=== PATIENT | female | born 1970 | race African-American/Black ===

== ENCOUNTER 2017-07-06 11:54 | Emergency (ER) | payer SELFPAY ==
[~2017-07-06] VITALS: Ht 165.1 cm; Wt 96.6 kg
[2017-07-06] MEDS ORDERED: IV NORMAL SALINE 1000ML BAG 1,000 ML IV SCH (12:21)
[2017-07-06] MEDS ORDERED: fentaNYL PF VIAL 100 MCG/2 ML VIAL IV PRN (12:30)
[2017-07-06] MEDS ORDERED: 0.9 % SODIUM CHLORIDE 10 ML DISP.SYRIN. IV PRN (12:30)
--- NOTE | 2017-07-06 12:31 | PHYS DOC ---
Past Medical History Past Medical History: Hypertension, Hypothyroid, Other Additional Past Medical Histor: PE Past Surgical History: Cervical Fusion, , Hysterectomy, Tubal ligation , Other Additional Past Surgical Histo: left rotator cuff repair x2, right rotator cuff repair Alcohol Use: Occasionally Drug Use: None Adult General Chief Complaint Chief Complaint: TOE PROBLEM HPI HPI This is a pleasant 46-year-old female with history of hypertension, hypothyroidism and prior near syncope who presents with a syncopal episode and a toe injury. Patient describes a history of recurrent of near-syncope and dizziness that occurred after she sustained a head injury while working several years ago. Since that time she has intermittent bouts of dizziness with chest pain that caused her to fall. This morning's event began as she's got up from a standing position walking to the bedroom felt that she was going to pass out with tunnel vision, some dizziness and try to stop herself from falling when she stubbed her fourth toe on her right foot into a dresser. She did not actually lose consciousness. She does describe some mild chest discomfort with the symptoms. Although this is not a new symptom it is persistent and has been worked up in the past but not completely and she has not seen a marker shipments. Patient denies any chest pain at this time only mild dizziness. It is not worsened by head movement but is change in posture. She denies any abdominal pain, focal neurologic deficits like weakness, dysarthria, problems finding words, aphasia, numbness or tingling or other symptoms. Patient denies any trauma, travel or other trauma to her head. Patient's pain in her toe is about a 410 without direct pressure 8-10 with walking. Patient denies any prior injury to this toe in the past. Review of Systems Review of Systems Constitutional: Denies fever or chills [] Eyes: Denies change in visual acuity, redness, or eye pain [] HENT: Denies nasal congestion or sore throat [] Respiratory: Denies cough or shortness of breath [] Cardiovascular: No additional information not addressed in HPI [] GI: Denies abdominal pain, nausea, vomiting, bloody stools or diarrhea [] : Denies dysuria or hematuria [] Musculoskeletal: Patient has had some right foot pain over the fourth digit after the injury. Integument: Denies rash or skin lesions [] Neurologic: She has chronic daily headaches but no focal weakness or sensory changes just dizziness upon standing. Endocrine: Denies polyuria or polydipsia [] Current Medications Current Medications Current Medications Medications (Trade) Dose Ordered Sig/[facility] Start Time Stop Time Status Last Admin Dose Admin Fentanyl Citrate (Fentanyl 2ml Vial) 25 mcg PRN Q15MIN PRN 07/06/17 12:30 07/07/17 12:29 07/06/17 12:57 25 MCG Sodium Chloride (Normal Saline Flush) 10 ml QSHIFT PRN 07/06/17 12:30 07/06/17 12:57 10 ML Allergies Allergies Allergies Coded Allergies Type Severity Reaction Last Updated Verified No Known Drug Allergies 08/28/15 No Physical Exam Physical Exam Vital signs recorded on the chart there is no obvious abnormalities. He is not hypertensive, tachycardic, tachypneic or hypoxic Constitutional: Well developed, well nourished, no acute distress, non-toxic appearance. [] HENT: Normocephalic, atraumatic, bilateral external ears normal, oropharynx moist, no oral exudates, nose normal. [] Eyes: PERRLA, EOMI, conjunctiva normal, no discharge. Is no nystagmus Neck: Normal range of motion, no tenderness, supple, no stridor. [] Cardiovascular:Heart rate regular rhythm, no murmur [] Lungs & Thorax: Bilateral breath sounds clear to auscultation [] Abdomen: Bowel sounds normal, soft, no tenderness, no masses, no pulsatile masses. [] Skin: Warm, dry, no erythema, no rash. [] Back: No tenderness, no CVA tenderness. [] Extremities: Patient is marked tenderness to palpation over the fourth proximal phalanx of the right foot with marked ecchymosis and soft tissue swelling. There is brisk capillary refill +2 brisk peripheral pulses at dorsalis pedis and posterior tibialis of that right foot and leg. Neurologic: Alert and oriented X 3, normal motor function, normal sensory function, no focal deficits noted. [] Psychologic: Affect normal, judgement normal, mood normal. [] Her stroke scale on arrival was 0. Based on the assessment below 1a. Level of consciousness: 0 = Alert; keenly responsive. 1 = Not alert; but arousable by minor stimulation to obey, answer, or respond. 2 = Not alert; requires repeated stimulation to attend, or is obtunded and requires strong or painful stimulation to make movements (not stereotyped). 3 = Responds only with reflex motor or autonomic effects or totally unresponsive , flaccid, and areflexic. 1b. LOC questions: 0 = Answers both questions correctly. 1 = Answers one question correctly. 2 = Answers neither question correctly. 1c. LOC commands: 0 = Performs both tasks correctly. 1 = Performs one task correctly. 2 = Performs neither task correctly. 2. Best gaze: 0 = Normal. 1 = Partial gaze palsy; gaze is abnormal in one or both eyes, but forced deviation or total gaze paresis is not present. 2 = Forced deviation, or total gaze paresis not overcome by the oculocephalic maneuver. 3. Visual: 0 = No visual loss. 1 = Partial hemianopia. 2 = Complete hemianopia. 3 = Bilateral hemianopia (blind including cortical blindness). 4. Facial palsy: 0 = Normal symmetrical movements. 1 = Minor paralysis (flattened nasolabial fold, asymmetry on smiling). 2 = Partial paralysis (total or near-total paralysis of lower face). 3 = Complete paralysis of one or both sides (absence of facial movement in the upper and lower face). 5. Motor arm: 0 = No drift; limb holds 90 (or 45) degrees for full 10 seconds. 1 = Drift; limb holds 90 (or 45) degrees, but drifts down before full 10 seconds ; does not hit bed or other support. 2 = Some effort against gravity; limb cannot get to or maintain (if cued) 90 ( or 45) degrees, drifts down to bed, but has some effort against gravity. 3 = No effort against gravity; limb falls. 4 = No movement. UN = Amputation or joint fusion, explain: 5a. Left arm 5b. Right arm 6. Motor le = No drift; leg holds 30-degree position for full 5 seconds. 1 = Drift; leg falls by the end of the 5-second period but does not hit bed. 2 = Some effort against gravity; leg falls to bed by 5 seconds, but has some effort against gravity. 3 = No effort against gravity; leg falls to bed immediately. 4 = No movement. UN = Amputation or joint fusion, explain: 6a. Left leg 6b. Right leg 7. Limb ataxia: 0 = Absent. 1 = Present in one limb. 2 = Present in two limbs. UN = Amputation or joint fusion 8. Sensory: 0 = Normal; no sensory loss. 1 = [id number]-tr-[id number] sensory loss; patient feels pinprick is less sharp or is dull on the affected side; or there is a loss of superficial pain with pinprick , but patient is aware of being touched. 2 = Severe to total sensory loss; patient is not aware of being touched in the face, arm, and leg. 9. Best language: 0 = No aphasia; normal. 1 = Lmdb-nv-[id number] aphasia; some obvious loss of fluency or facility of comprehension, without significant limitation on ideas expressed or form of expression. Reduction of speech and/or comprehension, however, makes conversation about provided materials difficult or impossible. For example, in conversation about provided materials, examiner can identify picture or naming card content from patient's response. 2 = Severe aphasia; all communication is through fragmentary expression; great need for inference, questioning, and guessing by the listener. Range of information that can be exchanged is limited; listener carries burden of communication. Examiner cannot identify materials provided from patient response. 3 = Mute, global aphasia; no usable speech or auditory comprehension. 10. Dysarthria: 0 = Normal. 1 = Jngp-ug-rcxndvvd dysarthria; patient slurs at least some words and, at worst , can be understood with some difficulty. 2 = Severe dysarthria; patient's speech is so slurred as to be unintelligible in the absence of or out of proportion to any dysphasia, or is mute/anarthric. UN = Intubated or other physical barrier, explain: 11. Extinction and inattention (formerly neglect): 0 = No abnormality. 1 = Visual, tactile, auditory, spatial, or personal inattention or extinction to bilateral simultaneous stimulation in one of the sensory modalities. 2 = Profound gerson-inattention or extinction to more than one modality; does not recognize own hand or orients to only one side of space. Current Patient Data Vital Signs Vital Signs Date Time Temp Pulse Resp B/P (MAP) Pulse Ox O2 Delivery O2 Flow Rate FiO2 07/06/17 12:57 16 07/06/17 12:00 98.4 89 96 Room Air 98.4 Lab Values Laboratory Tests Test 07/06/17 12:34 07/06/17 12:52 White Blood Count 6.5 x10^3/uL (4.0-11.0) Red Blood Count 4.62 x10^6/uL (3.50-5.40) Hemoglobin 14.0 g/dL (12.0-15.5) Hematocrit 42.0 % (36.0-47.0) Mean Corpuscular Volume 91 fL (79-100) Mean Corpuscular Hemoglobin 30 pg (25-35) Mean Corpuscular Hemoglobin Concent 33 g/dL (31-37) Red Cell Distribution Width 13.5 % (11.5-14.5) Platelet Count 260 x10^3/uL (140-400) Neutrophils (%) (Auto) 59 % (31-73) Lymphocytes (%) (Auto) 26 % (24-48) Monocytes (%) (Auto) 9 % (0-9) Eosinophils (%) (Auto) 5 % (0-3) H Basophils (%) (Auto) 1 % (0-3) Neutrophils # (Auto) 3.8 x10^3uL (1.8-7.7) Lymphocytes # (Auto) 1.7 x10^3/uL (1.0-4.8) Monocytes # (Auto) 0.6 x10^3/uL (0.0-1.1) Eosinophils # (Auto) 0.3 x10^3/uL (0.0-0.7) Basophils # (Auto) 0.1 x10^3/uL (0.0-0.2) Sodium Level 141 mmol/L (136-145) Potassium Level 3.6 mmol/L (3.5-5.1) Chloride Level 103 mmol/L (98-107) Carbon Dioxide Level 30 mmol/L (21-32) Anion Gap 8 (6-14) Blood Urea Nitrogen 12 mg/dL (7-20) Creatinine 0.8 mg/dL (0.6-1.0) Estimated GFR (Cockcroft-Gault) 94.3 Glucose Level 111 mg/dL (70-99) H Calcium Level 9.4 mg/dL (8.5-10.1) Magnesium Level 2.0 mg/dL (1.8-2.4) Total Bilirubin 0.9 mg/dL (0.2-1.0) Direct Bilirubin 0.2 mg/dL (0.0-0.2) Aspartate Amino Transferase (AST) 25 U/L (15-37) Alanine Aminotransferase (ALT) 42 U/L (14-59) Alkaline Phosphatase 68 U/L (46-116) Creatine Kinase 283 U/L (26-192) H Creatine Kinase MB (Mass) 1.4 ng/mL (0.0-3.6) Creatine Kinase MB Relative Index 0.5 % (0-4) Troponin I Quantitative 0.018 ng/mL (0.000-0.055) DG-Acv-J-Type Natriuretic Peptide 12 pg/mL (0-124) Total Protein 7.1 g/dL (6.4-8.2) Albumin 4.0 g/dL (3.4-5.0) Thyroid Stimulating Hormone (TSH) 0.919 uIU/mL (0.358-3.74) Urine Collection Type Unknown Urine Color Yellow Urine Clarity Clear Urine pH 6.0 Urine Specific [place] >=1.030 Urine Protein Negative mg/dL (NEG-TRACE) Urine Glucose (UA) Negative mg/dL (NEG) Urine Ketones (Stick) Negative mg/dL (NEG) Urine Blood Negative (NEG) Urine Nitrite Negative (NEG) Urine Bilirubin Negative (NEG) Urine Urobilinogen Dipstick 0.2 mg/dL (0.2 mg/dL) Urine Leukocyte Esterase Moderate (NEG) Urine RBC 0 /HPF (0-2) Urine WBC >40 /HPF (0-4) Urine Squamous Epithelial Cells Mod /LPF Urine Bacteria Many /HPF (0-FEW) Urine Mucus Marked /LPF Laboratory Tests 07/06/17 12:34 Laboratory Tests 07/06/17 12:34 EKG EKG []EKG timed 12:50 PM demonstrates a heart rate of 82 normal sinus rhythm with a left axis deviation with some nonseptic Q-wave in the anterior leads which may represent an old anterior septal infarct. Patient's DC intervals 162 which is normal patient's QRS width is 78 which is normal QTC is elevated at 518. EKG read by Dr. Cruz. Radiology/Procedures Radiology/Procedures [] [address] [id number] IMAGING REPORT Signed PATIENT: DORIS LIPSCOMB ACCOUNT: [id number] : 1970 LOCATION: ER AGE: 46 SEX: F EXAM STATUS: REG ER ORD. PHYSICIAN: JEANNIE CRUZ MD REASON: 4th toe injury PROCEDURE: FOOT RIGHT 3V Examination: 3 views of the right foot History: History of right foot pain after hitting a metal bar Comparison: 12/06/2009 Findings: The alignment of the tarsal joints, tarsometatarsal joints, interphalangeal joints grossly appears unremarkable. There is nondisplaced comminuted fracture of the proximal portion of the proximal phalanx of the fourth toe. Impression: Nondisplaced comminuted fracture of the proximal portion of the proximal phalanx of the fourth toe. DICTATED and SIGNED BY: MARIANELA HICKS MD DATE: 07/06/171328 CC: JEANNIE CRUZ MD; UNKNOWN PCP NAME ~ [address] [phone] IMAGING REPORT Signed PATIENT: DORIS LIPSCOMB ACCOUNT: [id number] : 1970 LOCATION: ER AGE: 46 SEX: F EXAM STATUS: REG ER ORD. PHYSICIAN: JEANNIE CRUZ MD REASON: 4th toe injury PROCEDURE: CHEST PA & LATERAL EXAM: CHEST 2 VIEWS History: Chest pain COMPARISON: None available. TECHNIQUE: PA and lateral chest radiographs FINDINGS: The cardiomediastinal silhouette is within normal limits. The lungs are clear bilaterally. The costophrenic sulci are clear and well demarcated bilaterally. Calcified lymph nodes left hilum. IMPRESSION: No radiographic evidence of an acute cardiopulmonary abnormality. DICTATED and SIGNED BY: MARIANELA HICKS MD DATE: 07/06/175 CC: JEANNIE CRUZ MD; UNKNOWN PCP NAME ~ Course & Med Decision Making Course & Med Decision Making Pertinent Labs and Imaging studies reviewed. (See chart for details) []My syncope differential includes but not limited to: Neurally mediated vasovagal syncope, situational syncope, cardiac sinus syncope , orthostatic hypertension, medications, psychiatric interventions, neurologic syncope, cardiogenic syncopal B, to include organic heart disease congestive heart failure, cardiac dysrhythmia, seizure disorder, stroke or transient ischemic attack, bradycardia dysrhythmias, tachycardia dysrhythmias, PT, V. fib V. fib, cardiac abnormalities like first degree secondary third-degree AV blocks , prolonged QT, hypertrophic [place] myopathy, severe pulmonic stenosis, pulmonary arterial hypertension, atrial myxomas, aortic stenosis, valvular failure, alcohol consumption, adrenal insufficiency, drug effects from things like antidepressants, antihypertensive agents like beta blockers, vasodilators including calcium channel blockers and nitrates, autonomic insufficiency. Considered upon arrival because of toe injury patient will have EKG, troponin, CMP, CBC, magnesium level and thyroid levels drawn. Patient is not and she has had a hysterectomy. Urine test does not need to be completed at this time. Patient denies Patient tells me that their symptoms given during CC are improved. We reviewed labs still waiting for x-ray films be completed. Time is now 1 PM patient is feeling markedly better just resting after fluids. Patient tells me that their symptoms given during CC are improved. We reviewed labs and radiology reports with patient and any family at bedside. Time is now 1 :54 PM described nondisplaced proximal phalanx fracture of the fourth toe. Patient's EKG, chest x-ray, troponin are within normal limits. Patient does not demonstrate any signs of dehydration. Reviewed her laboratory work with the patient. As well as her orthostatic vital signs which did not demonstrate positivity. Impression: Near syncope of unclear etiology, fourth phalanx fracture proximal right foot. Closed. Dragon Disclaimer Dragon Disclaimer This electronic medical record was generated, in whole or in part, using a voice recognition dictation system. Departure Departure Impression: Primary Impression: Non-cardiac syncope Additional Impression: Phalanx fracture, foot Disposition: 01 HOME, SELF-CARE Condition: IMPROVED Referrals: BONG SANCHEZ MD (PCP) Patient Instructions: Syncope, Toe Dislocation, [id number] Additional Instructions: My discharge plan Follow up: In addition patient is asked to followup with their primary doctor, within a week for followup examination and to address patient's ongoing medical conditions. Because patient does not have a regular medical doctor, a local physician Resource Sheet will be provided to establish care primary care. Patient is advised that in the Emergency Department primary complaints are addressed and only in light of known signs and symptoms. Patient should return immediately to the emergency department if new signs and symptoms develop or patient's condition worsens in any way. At time of discharge patient was in stable condition and had verbalized understanding of the discharge instructions. Your primary care doctor for referral to podiatry to help manage this fracture of your toe. Scripts Naproxen (NAPROSYN) 500 Mg Tablet 1 TAB PO BID, #14 TAB 1 Refill Prov: JEANNIE CRUZ MD 07/06/17 Hydrocodone Bit/Acetaminophen (HYDROCODONE-APAP 5-325 ) 1 Each Tablet 1-2 TAB PO PRN Q6HRS Y for PAIN for 5 Days, #10 TAB 0 Refills Prov: JEANNIE CRUZ MD 07/06/17 Problem Qualifiers JEANNIE CRUZ MD Jul 06, 2017 12:31
[2017-07-06 12:47] LABS: BASO # 0.1 x10^3/uL (0.0-0.2); BASO % 1 % (0-3); EOS % 5 % (0-3); LYMPH # 1.7 x10^3/uL (1.0-4.8); LYMPH % 26 % (24-48); MEAN CORPUSCULAR HEMOGLOBIN 30 pg (25-35); MEAN CORPUSCULAR HGB CONC 33 g/dL (31-37); MEAN CORPUSCULAR VOLUME 91 fL (79-100); MONO % 9 % (0-9); NEUT % 59 % (31-73); PLATELET COUNT 260 x10^3/uL (140-400); RED BLOOD COUNT 4.62 x10^6/uL (3.50-5.40); RED CELL DISTRIBUTION WIDTH 13.5 % (11.5-14.5); WHITE BLOOD COUNT 6.5 x10^3/uL (4.0-11.0)
[2017-07-06 12:59] LABS: CALCIUM 9.4 mg/dL (8.5-10.1); CREATININE 0.8 mg/dL (0.6-1.0); GFR 94.3; POTASSIUM 3.6 mmol/L (3.5-5.1)
[2017-07-06 13:04] LABS: DIRECT BILIRUBIN 0.2 mg/dL (0.0-0.2); TOTAL BILIRUBIN 0.9 mg/dL (0.2-1.0); TOTAL PROTEIN 7.1 g/dL (6.4-8.2)
[2017-07-06 13:11] LABS: BILIRUBIN,URINE NEGATIVE (NEG); GLUCOSE,URINE NEGATIVE (NEG); NITRITE,URINE NEGATIVE (NEG); PROTEIN,URINE NEGATIVE (NEG-TRACE); UROBILINOGEN,URINE 0.2 mg/dL (0.2 mg/dL)
[2017-07-06 13:12] LABS: CKMB MASS 1.4 ng/mL (0.0-3.6)
[2017-07-06 13:26] LABS: BACTERIA,URINE MANY /HPF (0-FEW); RBC,URINE 0 /HPF (0-2); WBC,URINE >40 /HPF (0-4)
[2017-07-06 13:27] LABS: SQUAMOUS EPITHELIAL CELL,UR MOD /LPF
--- NOTE | 2017-07-06 13:31 | RAD ---
EXAM: CHEST 2 VIEWS History: Chest pain COMPARISON: None available. TECHNIQUE: PA and lateral chest radiographs FINDINGS: The cardiomediastinal silhouette is within normal limits. The lungs are clear bilaterally. The costophrenic sulci are clear and well demarcated bilaterally. Calcified lymph nodes left hilum. IMPRESSION: No radiographic evidence of an acute cardiopulmonary abnormality.
--- NOTE | 2017-07-06 13:33 | RAD ---
Examination: 3 views of the right foot History: History of right foot pain after hitting a metal bar Comparison: 12/06/2009 Findings: The alignment of the tarsal joints, tarsometatarsal joints, interphalangeal joints grossly appears unremarkable. There is nondisplaced comminuted fracture of the proximal portion of the proximal phalanx of the fourth toe. Impression: Nondisplaced comminuted fracture of the proximal portion of the proximal phalanx of the fourth toe.
[2017-07-06] MEDS ORDERED: NAPR500T PO (14:05)
[2017-07-06] MEDS ORDERED: HYDR-2758 PO (14:05)
[2017-07-06 14:15] VITALS: BP 127/77
--- NOTE | 2017-07-06 15:07 | EKG ---
[facility] [address] [place] [id number] Test Date: 2017-07-06 Test Time: 12:50:00 Pat Name: DORIS LIPSCOMB Department: Room: Gender: F Insurance Claims Assistant: : 1970 Requested By: JEANNIE CRUZ Order Number: [id number] Reading MD: Loraine Massey Measurements Intervals [place] Rate: 82 P: 35 AL: 162 QRS: -7 QRSD: 78 T: -3 QT: 440 QTc: 518 Interpretive Statements SINUS RHYTHM LEFTWARD AXIS QRS(T) CONTOUR ABNORMALITY CONSISTENT WITH ANTEROSEPTAL INFARCT AGE UNDETERMINED ABNORMAL ECG Electronically Signed On 07-11-2017 21:14:59 CDT by Loraine Massey
--- NOTE | 2017-07-09 19:02 | VNOTE ---
CALL BACK NOTE CALL BACK Microbiology 07/06/17 Urine Culture - Final, Complete 07/06/17 Urine Culture Result 1 (SCOOBY) - Final, Complete 07/06/17 Antimicrobic Susceptibility - Final, Complete Patient's urine culture was positive for greater than 100,000 gram negative rods.I talked to patient. Rx for cephalexin called into [facility]. THANH LAY APRN Jul 09, 2017 19:02
== END 2017-07-06 14:33 | disposition home or self-care (01) ==
LOC: ER 11:54
DX: S92.514A Nondisplaced fracture of proximal phalanx of right lesser toe(s), initial encounter for closed fracture (principal); S09.90XA Unspecified injury of head, initial encounter; R55 Syncope and collapse; R07.89 Other chest pain; I10 Essential (primary) hypertension; E03.9 Hypothyroidism, unspecified; Z98.1 Arthrodesis status; Z86.711 Personal history of pulmonary embolism; W01.198A Fall on same level from slipping, tripping and stumbling with subsequent striking against other object, initial encounter; Y93.89 Activity, other specified; Y92.89 Other specified places as the place of occurrence of the external cause; Y99.8 Other external cause status
CPT/HCPCS: 36415; 71020; 73630; 80048; 80076; 81001; 82553; 83735; 83880; 84443; 84484; 85025; 87086; 87186; 93005; 96361; 96374; 99285; J3010; J7030